=== PATIENT | male | born 1955 | race Caucasian/White ===

== ENCOUNTER → 2024-11-30 | Day surgery (SDC) | payer MEDICARE, OTHER ==
[~2024-11-30] MED LIST: Lactated Ringers 1,000 ML IV PRN; Midazolam 1 MG/ML 2 ML SDV IV ONE; fentaNYL 100 MCG/2 ML SDV IV ONE
[2024-11-30] MEDS: Sodium Chloride 0.9% 10 ML Syringe FLUSH PRN (10:43)
[2024-11-30] MEDS: acetaZOLAMIDE 500 MG Cap.ER PO ONE (12:06)
== END ==
LOC: FB.SDS 09:57
PROVIDERS: ATTEND Ophthalmology
DX: H25.813 Combined forms of age-related cataract, bilateral (principal); H35.373 Puckering of macula, bilateral; H43.812 Vitreous degeneration, left eye; H04.123 Dry eye syndrome of bilateral lacrimal glands; I10 Essential (primary) hypertension; E78.5 Hyperlipidemia, unspecified; E03.9 Hypothyroidism, unspecified; N40.0 Benign prostatic hyperplasia without lower urinary tract symptoms; Z79.890 Hormone replacement therapy; Z79.899 Other long term (current) drug therapy
CPT/HCPCS: A9270-GY; J2250; J3010; V2632

== ENCOUNTER 2024-12-21 08:33 | Day surgery (SDC) | payer MEDICARE ==
[2024-12-21] MEDS ORDERED: fentaNYL 100 MCG/2 ML SDV IV ONE (08:34)
[2024-12-21] MEDS ORDERED: Midazolam 1 MG/ML 2 ML SDV IV ONE (08:34)
[2024-12-21] MEDS ORDERED: Sodium Chloride 0.9% 10 ML Syringe IV ONE (08:34)
[2024-12-21] MEDS ORDERED: Lactated Ringers 1,000 ML IV PRN (09:00)
[2024-12-21] MEDS ORDERED: Sodium Chloride 0.9% 10 ML Syringe FLUSH PRN (09:00)
[2024-12-21] MEDS: acetaZOLAMIDE 500 MG Cap.ER PO ONE (10:37)
== END 2024-12-21 10:50 | disposition home or self-care (01) ==
LOC: FB.SDS 08:33
PROVIDERS: ATTEND Ophthalmology
DX: H26.9 Unspecified cataract (principal); I10 Essential (primary) hypertension; E78.5 Hyperlipidemia, unspecified; E03.9 Hypothyroidism, unspecified; F32.A Depression, unspecified; Z79.899 Other long term (current) drug therapy
CPT/HCPCS: 66984; A9270; J2250; J3010; V2632; 00142